=== PATIENT | female | born 1995 | race Caucasian/White ===

== ENCOUNTER 2022-07-14 09:58 | Outpatient (CLI) | payer OTHER, MEDICAID, SELFPAY ==
--- NOTE | 2022-07-14 11:00 | CRLHL7_ITS ---
For Patients: As a result of the Century Cures Act, medical imaging exams and procedure reports are released immediately into your electronic medical record. You may view this report before your referring provider. If you have questions, please contact your health care provider. Indication: Pain. Twelve weeks Technique: Trans abdominal and transvaginal sonographic evaluation of the pelvis was performed. Doppler was also performed. Comparison: None Findings: The uterus measures 7.4 x 4.4 x 5.2 centimeters which is normal. Myometrial echotexture is normal. The endometrial canal is of normal caliber at 6 millimeters. A small amount of fluid is noted in the cul-de-sac. The right ovary measures 3.7 x 1.8 x 2.4 centimeters. This contains follicles. Arterial and venous blood flow was demonstrated by Doppler The left ovary measures 4.2 x 1.6 x 2.5 centimeters. This contains a minimally complex cystic structure, probably a hemorrhagic cyst measuring 1.7 x 1.0 x 1.0 centimeters. Arterial and venous blood flow was demonstrated by Doppler There is no evidence of torsion on either side The patient indicated area of pain at her umbilicus. While not fully or formally study, there is an umbilical hernia measuring 3.5 centimeters in greatest dimension. Follow-up formal evaluation recommended if this is an area of concern Impression: 1. The uterus and endometrium appear normal. 2. Small slightly complex cyst in the left ovary measuring 1.7 centimeters likely a hemorrhagic cyst. No indication of torsion on either side. 3. Small amount of free fluid in the cul-de-sac. 4. Incidental umbilical hernia measuring 3.5 centimeters in greatest dimension. Dictated by Teja Rincon MD @ 07/14/2022 12:12:46 PM (Electronically Signed)
== END 2022-07-14 09:59 | disposition home or self-care (01) ==
PROVIDERS: PCP Family Medicine; Visit Provider Family Medicine
DX: R10.2 Pelvic and perineal pain (principal); N83.202 Unspecified ovarian cyst, left side; K42.9 Umbilical hernia without obstruction or gangrene
CPT/HCPCS: 76830; 76856; 93976

== ENCOUNTER 2022-08-19 07:42 | Day surgery (SDC) | payer MEDICAID, SELFPAY ==
[2022-08-19] VITALS (11 sets, daily range): BP systolic 90–121; BP diastolic 52–68; PULSE 50–78; RESP 16; TEMP 36.5–37.3; O2SAT 95–98; BMI 39.7
[2022-08-19] MEDS: LACTATED RINGERS 1000 ML 1,000 ML 100 ML IV (08:00)
[2022-08-19] MEDS: CEFAZOLIN 2 GM INJ IVP (08:30)
[2022-08-19] MEDS: BUPIVACAINE 0.25% 30 ML INJECTION (09:16)
--- NOTE | 2022-08-19 09:46 | PM.GSPRC ---
Operative Note Date of procedure: 08/19/22 Type of Procedure: Open ventral hernia repair with placement of mesh Procedure Description: After discussing the risks and benefits of the procedure, the patient signed informed consent.? The operative site was marked and the patient was brought to the operating room and placed on the operating table in supine position.? Care was taken to pad the patient's pressure points.?? The patient was then intubated by anesthesia.?? The operative site was then prepped and draped in the usual sterile fashion.? A time-out was then performed. A curvilinear incision was made at the umbilicus. Dissection was carried down into the subcutaneous tissue using cautery. The hernia sac was encountered and care was taken to not enter it. Dissection was taken down to the fascia, and the umbilical stock was carefully dissected off of the hernia sac. Once the hernia sac was dissected out circumferentially, it was reduced. The fascial edges were then cleared circumferentially. An additional small epigastric hernia was appreciated approximately 1 cm from the umbilical hernia. The 2 fascial defects were connected and the resulting hernia was 3 cm in size. The decision was then made to use a piece of mesh. A preperitoneal pocket was created using a combination of blunt dissection and cautery. Hemostasis appeared adequate. Once the posterior fascia was clear, a piece of medium Ventralex ST hernia mesh was placed in the preperitoneal space with care to ensure that it laid flat. This was secured into place using 2 0 PDS interrupted sutures. The tails were then trimmed and the fascial opening was closed with a running 0 Vicryl. Local anesthetic was injected into the fascia, skin and subcutaneous tissues. The umbilicus was reapproximated to the fascia. The skin was then closed with running absorbable suture. A sterile dressing was then applied. ? Sterile dressings were then applied. ? The patient was then woken and transported to the recovery area in stable condition. ? The patient tolerated the procedure well. Findings: Umbilical hernia and small epigastric hernia. Repaired with mesh. Anesthesia: GETA Surgeon: Jonna Cody MD Estimated blood loss (mL): 5 Condition: stable Disposition: PACU
--- NOTE | 2022-08-19 09:50 | W.ANESCHARGE ---
Anesthesia Charges Start Date/Time Anesthesia Start Date: 08/19/22 Anesthesia Start Time: 08:30 Stop Date/Time Anesthesia Stop Date: 08/19/22 Anesthesia Stop Time: 09:50 Summary Emergency: No
[2022-08-19] MEDS: fentaNYL 100 MCG/2 ML inj 50 MCG IVP (10:01)
[2022-08-19] MEDS: METOCLOPRAMIDE HCL 5 MG/ML INJ 10 MG IVP (10:06)
[2022-08-19] MEDS: KETOROLAC 15 MG/ML inj IVP (10:34)
--- NOTE | 2022-08-19 13:30 | W.ANESCHARGE ---
Anesthesia Charges Start Date/Time Anesthesia Start Date: 08/19/22 Anesthesia Start Time: 08:30 Stop Date/Time Anesthesia Stop Date: 08/19/22 Anesthesia Stop Time: 09:50 Summary Emergency: No
== END 2022-08-19 12:30 | disposition home or self-care (01) ==
PROVIDERS: Visit Provider Surgery
PROC: (CPT 49560; principal; 2022-08-19 08:45)
DX: K43.9 Ventral hernia without obstruction or gangrene (principal); K42.9 Umbilical hernia without obstruction or gangrene
CPT/HCPCS: 49560; 49568; 00800; 00832; C1781; J0690; J1100; J1885; J2250; J2405; J2704; J2765; J3010; J3490; J7120

== ENCOUNTER 2023-08-11 08:20 | Outpatient (RCR) | payer MEDICAID, SELFPAY | END 2023-10-21 16:22 | disposition home or self-care (01) | PROVIDERS: Visit Provider Obstetrics & Gynecology | DX: N81.4 Uterovaginal prolapse, unspecified (principal); N39.3 Stress incontinence (female) (male); M25.39 Other instability, other specified joint; M62.81 Muscle weakness (generalized); Z51.89 Encounter for other specified aftercare | CPT/HCPCS: 97110; 97162 ==

== ENCOUNTER 2023-10-01 11:06 | Outpatient (CLI) | payer MEDICAID, SELFPAY ==
--- NOTE | 2023-10-01 11:15 | MR_ITS ---
[address] [address] Phone:?[phone] Fax:?[phone] Referring Physician Information: Destinee Mathis [address] [facility] [address] Phone:?[phone] Fax:?[phone] Patient:Enzo Dennis D.O.B:?1995 Sex:?Female Phone:?[phone] [facility] MRN:?[id number] Exam Date:?10/01/2023 EXAM: MRI of the LEFT KNEE, without contrast CLINICAL HISTORY: Left knee pain. Evaluate for medial meniscal tear. COMPARISONS: Plain radiographs 08/01/2023. TECHNICAL: MR sequences of the left knee: sagittals: PD, T2 FS coronals: PD, STIR, T2 axials: PD, T2 FS CONTRAST: None SEDATION: None FINDINGS: Bones: No fracture, bone marrow contusion, or other suspicious bone marrow signal abnormality. 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 Retinacula: The medial and lateral retinacula are intact. Fat pads: Edema-like signal within the superolateral portion of the infrapatellar fat pad is associated with patellar tendon-lateral femoral condyle friction/patellar maltracking. A 1.2 cm in craniocaudad dimension by 1.2 cm in AP dimension by 1.7 cm in transverse dimension region of edema-like signal within the infrapatellar fat pad at the anterior and superior aspect of the anterior root/anterior horn of the medial meniscus is present. The Insall Salvati index measures 1.35. The lateral trochlear inclination angle measures 22 degrees. The tibial tubercle to trochlear groove distance measures 1.4 cm. Knee joint: Effusion: Physiologic amount of joint fluid. Popliteal cyst: None. Intra-articular bodies: None. Posteromedial corner: The semimembranosus and pes anserine tendons are intact. Medial compartment: Medial meniscus: Intact. Cartilage: Intact. Lateral compartment: Lateral meniscus: Intact. Cartilage: Intact. Ligaments: Anterior cruciate ligament: Intact. Posterior cruciate ligament: Intact. Medial collateral ligament: Intact. Posterior oblique ligament: Intact. Fibular collateral ligament: Intact. Posterolateral corner: The distal biceps femoris tendon, iliotibial band, popliteus tendon, popliteus muscle, popliteofibular ligament, and arcuate ligament are intact. Extensor mechanism: Patellar tendon: Intact. Quadriceps tendon: Intact. IMPRESSION: 1. 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 2. Edema-like signal within the superolateral portion of the infrapatellar fat pad is associated with patellar tendon-lateral femoral condyle friction/patellar maltracking. Finding is of uncertain clinical significance in this case as the finding is very mild in this case. Mildly increased Insall Salvati index of 1.35. The tibial tubercle to trochlear groove distance measures 1.4 cm. Normal lateral trochlear inclination angle of 22 degrees. 3. A 1.2 x 1.2 x 1.7 cm region of edema-like signal within the infrapatellar fat pad at the anterior and superior aspect of the anterior root/anterior horn of the medial meniscus could reflect sequela of ruptured ganglion but is of uncertain etiology and clinical significance. 4. No ligamentous, tendinous, or meniscal pathology of the left knee. Intact medial and lateral compartment cartilage. RCB Electronically signed on 10/02/2023 12:07:00 PM by Erlin Jackson M.D.
== END 2023-10-01 11:07 | disposition home or self-care (01) ==
LOC: MRI 11:08
PROVIDERS: Visit Provider Physician Assistant Surgical
DX: M25.562 Pain in left knee (principal); M22.42 Chondromalacia patellae, left knee; S83.249A Other tear of medial meniscus, current injury, unspecified knee, initial encounter
CPT/HCPCS: 73721

== ENCOUNTER 2023-10-21 12:41 | Outpatient (CLI) | payer MEDICAID, SELFPAY | END 2023-10-21 12:42 | disposition home or self-care (01) | LOC: NFLDREF 10-22 09:08 | PROVIDERS: Visit Provider Obstetrics & Gynecology | DX: N89.8 Other specified noninflammatory disorders of vagina (principal) | CPT/HCPCS: 87086 ==

== ENCOUNTER 2025-05-24 14:08 | Outpatient (CLI) | payer MEDICAID, SELFPAY | END 2025-05-24 14:09 | disposition home or self-care (01) | PROVIDERS: PCP Registered Nurse; Visit Provider Obstetrics & Gynecology | DX: O20.9 Hemorrhage in early pregnancy, unspecified (principal); Z67.10 Type A blood, Rh positive; Z3A.01 Less than 8 weeks gestation of pregnancy | CPT/HCPCS: 84702; 86850; 86900; 86901 ==